=== PATIENT | female | born 1995 | race Caucasian/White ===

== ENCOUNTER 2018-05-04 10:46 | Emergency (ER) | payer MEDICAID ==
[~2018-05-04] VITALS: Ht 142.2 cm; Wt 45.4 kg
[2018-05-04 10:59] VITALS: BP 104/72
== END 2018-05-04 12:57 | disposition left against medical advice (07) ==
LOC: ER 10:46
DX: J02.9 Acute pharyngitis, unspecified (principal); Z53.21 Procedure and treatment not carried out due to patient leaving prior to being seen by health care provider

== ENCOUNTER 2024-03-30 00:07 | Emergency (ER) | payer MEDICAID ==
[~2024-03-30] VITALS: Ht 142.2 cm; Wt 45.4 kg
[2024-03-30 00:14] VITALS: BP 103/71; PULSE 125; RESP 20; O2SAT 99
== END 2024-03-30 01:07 | disposition left against medical advice (07) ==
LOC: EDBD 00:07 → ER 00:07
DX: M54.50 Low back pain, unspecified (principal); R10.2 Pelvic and perineal pain; F17.210 Nicotine dependence, cigarettes, uncomplicated; F15.90 Other stimulant use, unspecified, uncomplicated; Z98.890 Other specified postprocedural states; V89.2XXA Person injured in unspecified motor-vehicle accident, traffic, initial encounter; Y93.89 Activity, other specified; Y92.89 Other specified places as the place of occurrence of the external cause; Y99.8 Other external cause status
CPT/HCPCS: 36415; 84702